=== PATIENT | female | born 1995 | race Native Hawaiian/Other Pacific Islander ===

== ENCOUNTER 2017-01-21 18:56 | Emergency (ER) | payer SELFPAY ==
[2017-01-21 19:03] VITALS: BP 116/79; PULSE 81; RESP 16; TEMP 98.2; O2SAT 100
--- NOTE | 2017-01-21 20:31 | ED PDOC ---
HPI: Skin/Bite Injury Time Seen by Provider: 01/21/17 19:35 Chief Complaint (Nursing): Abnormal Skin Integrity Chief Complaint (Provider): Abnormal Skin Integrity History Per: Patient History/Exam Limitations: no limitations Onset/Duration Of Symptoms: Days (x2) Current Symptoms Are (Timing): Still Present Additional Complaint(s): Evelyne Briseno is a 21 year old female with previous medical history of asthma and allergic reaction to unknown sources, who presents to the emergency department for an evaluation of skin rash on neck, face and scalp ongoing for 1 week. Denied fever, chills, wheezing and chest pain. Patient stated she injected an epi-pen to self yesterday with absence of shortness of breath and took a Benadryl today. PMD: none provided Past Medical History Reviewed: Historical Data, Nursing Documentation, Vital Signs Vital Signs: Last Vital Signs Temp 98.2 F 01/21/17 19:00 Pulse 81 01/21/17 19:00 Resp 16 01/21/17 19:00 BP 116/79 01/21/17 19:00 Pulse Ox 100 01/21/17 20:37 - Medical History PMH: Asthma - Surgical History Surgical History: No Surg Hx - Family History Family History: States: Unknown Family Hx - Social History Current smoker - smoking cessation education provided: No Ex-Smoker (has not smoked in the last 12 months): No Alcohol: None Drugs: Denies - Home Medications Home Medications: Ambulatory Orders Medication Instructions Recorded predniSONE [Prednisone] 40 mg PO DAILY #8 tab 01/21/17 - Allergies Allergies/Adverse Reactions: Allergies Allergy/AdvReac Type Severity Reaction Status Date / Time No Known Allergies Allergy Verified 01/21/17 18:59 Review of Systems ROS Statement: Except As Marked, All Systems Reviewed And Found Negative Constitutional: Negative for: Fever, Chills Cardiovascular: Negative for: Chest Pain Respiratory: Negative for: Shortness of Breath, Wheezing Skin: Positive for: Rash (nneck, face and scalp) Physical Exam - Reviewed Nursing Documentation Reviewed: Yes Vital Signs Reviewed: Yes - Physical Exam Appears: Positive for: Well, Non-toxic, No Acute Distress Head Exam: Positive for: ATRAUMATIC, NORMAL INSPECTION, NORMOCEPHALIC Skin: Positive for: Warm, Dry, Rash (epicardial; facial acne) Cardiovascular/Chest: Positive for: Regular Rate, Rhythm. Negative for: Chest Non Tender Respiratory: Positive for: Normal Breath Sounds, Accessory Muscle Use. Negative for: Decreased Breath Sounds, Crackles, Rales, Rhonchi, Wheezing, Respiratory Distress Gastrointestinal/Abdominal: Positive for: Normal Exam Neurologic/Psych: Positive for: Alert, Oriented - ECG O2 Sat by Pulse Oximetry: 100 (RA) Pulse Ox Interpretation: Normal Medical Decision Making Medical Decision Making: Initial Impression: Skin rash Initial Plan: * Prednisone 40mg PO Time: 2029 --Upon provider reevaluation, patient is medically stable and requires no further treatment in the ED at this time. Patient will be discharged home. Counseling was provided and all questions were answered regarding diagnosis and need for follow up with touch up painter hand or PCP. There is agreement to discharge plan. Return if symptoms persist or worsen. Clinical Impression: Allergic reaction Scribe Attestation: Documented by Anaya Morales, acting as a scribe for Roseann Lackey MD. Provider Scribe Attestation: All medical record entries made by the Scribe were at my direction and personally dictated by me. I have reviewed the chart and agree that the record accurately reflects my personal performance of the history, physical exam, medical decision making, and the department course for this patient. I have also personally directed, reviewed, and agree with the discharge instructions and disposition. Disposition - Clinical Impression Clinical Impression: Allergic reaction - Patient ED Disposition Is Patient to be Admitted: No Counseled Patient/Family Regarding: Diagnosis, Need For Followup - Disposition Disposition: Routine/Home Disposition Time: 20:30 Condition: IMPROVED Additional Instructions: follow up with your primary doctor/touch up painter hand as instructed continue benadryl as needed take prednisone for 4 days return to the ED with any worsening or concerning symptoms Prescriptions: predniSONE [Prednisone] 40 mg PO DAILY #8 tab Instructions: Food Allergy (ED), General Allergic Reaction (ED) Forms: [employer] (Bengali)
== END 2017-01-21 21:28 | disposition home or self-care (01) ==
LOC: H.ER 18:56
DX: T78.40XA Allergy, unspecified, initial encounter (principal); J45.909 Unspecified asthma, uncomplicated; Z87.891 Personal history of nicotine dependence
CPT/HCPCS: 96374; 96375; 99282; J2930